=== PATIENT | male | born 1980 | race Caucasian/White ===

== ENCOUNTER 2020-07-06 15:53 | Emergency (ER) | payer MEDICAID ==
[~2020-07-06] VITALS: Ht 182.9 cm; Wt 104.5 kg
[2020-07-06 16:03] VITALS: BP 126/99
== END 2020-07-06 16:40 | disposition home or self-care (01) ==
LOC: ER 15:53
DX: Z02.89 Encounter for other administrative examinations (principal); F15.10 Other stimulant abuse, uncomplicated; F10.10 Alcohol abuse, uncomplicated; F12.90 Cannabis use, unspecified, uncomplicated; Y90.9 Presence of alcohol in blood, level not specified
CPT/HCPCS: 99281